=== PATIENT | female | born 1935 | race Caucasian/White ===

== ENCOUNTER → 2016-12-05 | Outpatient (CLI) | payer OTHER ==
--- NOTE | ~2016-12-05 | MY11 ---
[facility] A Service of [facility] RADIOLOGY TEXT RESULTS PATIENT: GLEN WEEMS LOCATION: [facility] : 31 UNIT #: [id number] AGE: [address]: Kamini Ugalde MD SEX: F ORDER DR: [id number] [place] [id number] O MR#: [id number] Acc #: [id number] NAME: GLEN WEEMS : 1935 SEX: F STUDY DATE/TIME: 12/05/2016 10:43 UNIT: [facility] ROOM: STUDY DESCRIPTION: MY Mammogram Screening Dig [facility] Attending Physician: Kamini Ugalde M.D. Referring Physician: Kamini Ugalde M.D. Ordering Physician: Kamini Ugalde M.D. Primary Care Physician: Kamini Ugalde M.D. MEDICAL IMAGING REPORT This report is preliminary unless electronic signature is present. EXAM Digital screening mammogram, 12/05/2016 HISTORY 81-year-old woman no risk elevation. Annual screening. COMPARISON Mammograms date to 08/08/2005 with most recent 11/27/2015. FINDINGS Digital imaging of each breast was completed utilizing screening protocol. Review includes FDA-approved CAD device. Breast parenchyma is partially fatty replaced and stable. There is no interval occurring mass. There are no suspicious microcalcifications and no suspicious architectural deformity. IMPRESSION Negative mammogram. Annual screening is optional at this age. Patients over the age of 40 are entered into a reminder system with target due date for the next mammogram. A result letter will also be sent to the patient. BIRADS: 1 Negative Dictated by... Carson Villasenor M.D. THIS IS AN ELECTRONICALLY VERIFIED REPORT Carson Villasenor M.D. at 12/05/2016 11:33 AM EDWIN/hilario [facility] A Service of [facility] RADIOLOGY TEXT RESULTS PATIENT: GLEN WEEMS LOCATION: [facility] : 31 UNIT #: [id number] AGE: [address]: Kamini Ugalde MD SEX: F ORDER DR: TD: 12/05/2016 11:16 JOB #: [id number] MEDICAL IMAGING REPORT Page 1 of 1
== END | disposition home or self-care (01) ==
LOC: SMAM 10:07
DX: Z12.31 Encounter for screening mammogram for malignant neoplasm of breast (principal)
CPT/HCPCS: G0202